=== PATIENT | female | born 1960 | race Caucasian/White ===

== ENCOUNTER 2022-04-22 12:52 | Outpatient (CLI) | payer BC, SELFPAY ==
--- NOTE | 2022-04-22 13:27 | XRR_ITS ---
PROCEDURE INFORMATION: Exam: XR Right Hip Exam date and time: 04/22/2022 1:27 PM Age: 61 years old Clinical indication: Injury or trauma; Fall; Blunt trauma (contusions or hematomas); Right; Hip; Additional info: W19. Xxxa - unspecified fall, initial encounter TECHNIQUE: Imaging protocol: Radiologic exam of the Right hip. Views: 1 view hip with pelvis when performed. COMPARISON: No relevant prior studies available. FINDINGS: Bones/joints: Unremarkable. No acute fracture. Soft tissues: Unremarkable. XR/XR hip RT 2-3V wo/w pel* [id number] IMPRESSION: No acute findings.
== END 2022-04-22 12:53 | disposition home or self-care (01) ==
PROVIDERS: Family Provider Family Medicine; Visit Provider Emergency Medicine
DX: M25.551 Pain in right hip (principal); W19.XXXA Unspecified fall, initial encounter
CPT/HCPCS: 73502

== ENCOUNTER 2022-05-10 06:00 | Outpatient (RCR) | payer BC, OTHER, SELFPAY | END 2022-05-21 23:59 | disposition home or self-care (01) | LOC: MPT 06:00 | PROVIDERS: Family Provider Family Medicine; Referring Provider Emergency Medicine; Visit Provider Emergency Medicine | DX: M25.551 Pain in right hip (principal) | CPT/HCPCS: 97110; 97140; 97161; G0283 ==

== ENCOUNTER 2022-05-22 06:00 | Outpatient (RCR) | payer BC, OTHER, SELFPAY | END 2022-06-21 23:59 | disposition home or self-care (01) | LOC: MPT 06:00 | PROVIDERS: Referring Provider Emergency Medicine; Visit Provider Emergency Medicine | DX: M25.551 Pain in right hip (principal); W19.XXXA Unspecified fall, initial encounter | CPT/HCPCS: 97110; G0283 ==